=== PATIENT | female | born 1975 | race Hispanic/Latino ===

== ENCOUNTER 2018-12-04 07:26 | Outpatient (CLI) | payer BC ==
[2018-12-04] MEDS ORDERED: Iopamidol 370 76% 100 ML VIAL ONE (10:25)
--- NOTE | 2018-12-04 11:33 | CT ---
CT NECK WITH AND WITHOUT CONTRAST: Date: 12/04/18 INDICATION: History of thyroid malignancy. Lump. FINDINGS: There is absence of the thyroid gland status post therapy. No residual mass or the thyroid bed is dis cretely visualized. Salivary glands are grossly unremarkable. There are scattered borderline size lym ph nodes of the neck bilaterally. These are nonspecific in etiology. No mass of the aerodigestive tra ct. No obvious acute osseous abnormality. No mass of the imaged upper lung zone. IMPRESSION: 1. Status post thyroidectomy. 2. Nonspecific bilateral cervical chain lymph nodes. Correlate clinically. 3. More sensitive evaluation may be obtained with thyroid uptake nuclear medicine scan for continued evaluation as clinically necessary. POS: [facility]
== END 2018-12-04 07:27 | disposition home or self-care (01) ==
LOC: CT 07:26
PROVIDERS: ATTEND Physician Assistant Medical
DX: R22.1 Localized swelling, mass and lump, neck (principal); E89.0 Postprocedural hypothyroidism; Z85.850 Personal history of malignant neoplasm of thyroid
CPT/HCPCS: 70492

== ENCOUNTER 2018-12-23 13:54 | Outpatient (CLI) | payer BC ==
--- NOTE | 2018-12-23 16:08 | ULT ---
Soft tissue ultrasound of the right anterior lower neck INDICATION: palpable abnormality in the right neck FINDINGS: There is a 0.9 x 0.3 x 0.7 cm reniform appearing hypoechoic mass that is hyperemic. This le chandana overlies the lower right sternocleidomastoid muscle. This likely corresponds to an 8 x 5 mm nodular density overlying the right sternocleidal mastoid muscle on the comparison CT of the soft tis cecilio neck dated 12/04/2018. Patient had mildly prominent lymph nodes within the neck bilaterally. This is likely indicative of an additional smaller lymph node. IMPRESSION: Reniform hypoechoic, hyperemic mass is suspicious for an enlarged lymph node. Recommend c onsideration for surgical referral for surgical biopsy.
== END 2018-12-23 13:55 | disposition home or self-care (01) ==
LOC: ULT 13:54
PROVIDERS: ATTEND Internal Medicine Endocrinology, Diabetes & Metabolism
DX: C73 Malignant neoplasm of thyroid gland (principal); R22.1 Localized swelling, mass and lump, neck
CPT/HCPCS: 76999

== ENCOUNTER 2019-01-14 08:25 | Emergency (ER) | payer BC ==
[2019-01-14] MEDS ORDERED: Diazepam 10 MG/2 ML SYRINGE ONE (08:44)
[2019-01-14] MEDS ORDERED: Ibuprofen 800 MG TAB ONE (09:17)
== END 2019-01-14 09:51 | disposition home or self-care (01) ==
LOC: ERS 08:25
DX: G24.3 Spasmodic torticollis (principal); G43.909 Migraine, unspecified, not intractable, without status migrainosus; F41.9 Anxiety disorder, unspecified; Z79.899 Other long term (current) drug therapy
CPT/HCPCS: 96374; J3360

== ENCOUNTER 2019-01-25 10:40 | Outpatient (CLI) | payer BC ==
--- NOTE | 2019-01-27 15:15 | NM ---
WHOLE BODY RADIOIODINE SCAN: 01/27/19 HISTORY: Malignant neoplasm of thyroid gland. Patient had thyroidectomy in 2014 and no subsequent radioiodine ablation therapy. RADIOPHARMACEUTICAL: 4.5 millicuries Iodine 123 administered orally. COMPARISON: None. FINDINGS: There are foci of intense uptake in the neck. A star burst artifact is seen in the neck. There is physiologic activity in the GI and tracts. No other abnormal areas of tracer localization is seen. 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 POS: [facility]
== END 2019-01-25 10:41 | disposition home or self-care (01) ==
LOC: NM 10:40
PROVIDERS: ATTEND Internal Medicine Endocrinology, Diabetes & Metabolism
DX: C73 Malignant neoplasm of thyroid gland (principal); E03.9 Hypothyroidism, unspecified
CPT/HCPCS: 78018; A9517

== ENCOUNTER 2019-02-10 10:06 | Inpatient (IN) | payer BC ==
[~2019-02-10 10:06] MED LIST: Dexamethasone 20 MG/5 ML VIAL ONE; Glycopyrrolate 0.2 MG/ML 5 ML SYRINGE ONE; Lidocaine 1% PF 5 ML VIAL ONE; Ondansetron PF 4 MG/2 ML Vial ONE; PROPOFOL 200 MG/20 ML VIAL ONE; Rocuronium Bromide 10 MG/ML (10ML VIAL) ONE; ePHEDrine/0.9% NaCl/PF SYRINGE 50 mg/10 ml ONE
[2019-02-10] MEDS ORDERED: Lidocaine 1% w/Epinephrine 1:100K 20 ML VIAL ONE (12:10)
[2019-02-10] MEDS ORDERED: Bacitracin Zinc Ointment 30 gm TUBE ONE (12:10)
[2019-02-10] MEDS ORDERED: Fentanyl 250 MCG/5 ML VIAL ONE (12:16)
[2019-02-10] MEDS ORDERED: Midazolam HCl 2 mg/2 ml Vial ONE (12:24)
[2019-02-10] MEDS ORDERED: PROPOFOL 20 ML ONE (13:40)
[2019-02-10] MEDS ORDERED: SUGAMMADEX SODIUM 200 MG/2 ML VIAL ONE (13:49)
[2019-02-10] MEDS ORDERED: Fentanyl 100 MCG/2 ML VIAL ONE ×2 (14:18→15:19)
--- NOTE | 2019-02-10 14:43 | OP ---
DATE OF PROCEDURE: 02/10/2019 PREOPERATIVE DIAGNOSES: 1. History of thyroid cancer. 2. Right cervical lymphadenopathy. POSTOPERATIVE DIAGNOSES: 1. History of thyroid cancer. 2. Right cervical lymphadenopathy. PROCEDURE PERFORMED: Right selective neck dissection level 2 through 4. ESTIMATED BLOOD LOSS: 20 mL. COMPLICATIONS: None. ANESTHESIA: GETA. BRIEF HISTORY: This is a 43-year-old female with history of a small thyroid cancer, underwent thyroidectomy with no postoperative radioactive iodine treatment. There was concern for recurrence of metastatic disease in the right neck by a recent thyroid uptake scan. We discussed with security tech and also with radiologist about the excisional biopsy of this versus a possible neck dissection. DESCRIPTION OF PROCEDURE: The patient was taken to the operating room, placed supine on the table. General endotracheal anesthesia was obtained by the Anesthesia Staff. A shoulder roll was placed. Following this, a right neck was prepped and draped in standard surgical fashion. An incision was made in the submental crease extending laterally onto the neck. The patient had extremely short neck. Dissection was carried down to the digastric muscle. The facial vein was suture ligated. The sternocleidomastoid muscle was then gently unwrapped from the fascia. There were multiple lymph nodes from level 2 and 3, a large lymph node in level 2 which was prominent on the CT scan was sent for frozen section analysis that showed no evidence of metastatic disease. However, due to the numerous lymph nodes that were present, the more comprehensive neck dissection was performed. The sternocleidomastoid fascia was unwrapped and anteriorly displaced. The spinal accessory nerve on this right side was identified. It was noted to be coursing lateral to the internal jugular vein. Dissection at the inferior limit, the omohyoid was retracted inferiorly and dissection was carried into level 4 down to the deep neck musculature, where this lymphatic pedicle was suture ligated. The level 2 through 4 specimen was then dissected from lateral to medial of the deep neck musculature fascia. Following this, the internal jugular vein was unwrapped and its branching vessels were suture ligated. The lymphatic pedicle was then freed from the attachments to the carotid artery and the previous right thyroid surgical bed and was marked and sent for pathological analysis. Following this, the wound was irrigated. A small drain was placed, and the wound was then closed using Monocryl and Vicryl stitches for the platysma layer and subcuticular layer. Dermabond was placed on the skin. The patient tolerated the procedure well. Job ID: [id number]
[2019-02-10] MEDS ORDERED: Ondansetron PF 4 MG/2 ML Vial SLOW IVP PRN ×2 (16:59→18:08)
[2019-02-10 17:48] VITALS: BMI 50.8
[2019-02-10] MEDS ORDERED: HYDROcodone/Acetaminophen 5/325 mg Tablet PO PRN ×2 (18:07→19:32)
[2019-02-10] MEDS: Sodium Chloride 0.45% 1,000 ML IV SCH ×2 (18:22→18:24)
[2019-02-10] MEDS: Morphine 2 MG/ML SYRINGE SLOW IVP PRN (18:24)
[2019-02-10] MEDS: CEFAZOLIN 1 GM in Sodium Chloride 0.9% 100 ML IVPB SCH (20:19)
[2019-02-11] MEDS: Sodium Chloride 0.45% 1,000 ML IV SCH ×3 (03:04→11:35)
[2019-02-11] MEDS: CEFAZOLIN 1 GM in Sodium Chloride 0.9% 100 ML IVPB SCH ×2 (03:04→11:35)
[2019-02-11] MEDS: Morphine 2 MG/ML SYRINGE SLOW IVP PRN (06:19)
[2019-02-11 08:26] VITALS: BP 127/85; TEMP 97.8
--- NOTE | 2019-02-13 06:54 | PQF ---
MAURO SABILLON STEVEN MD [id number] SURG [id number] CLINICAL DOCUMENTATION CLARIFICATION FORM: POST DISCHARGE Addendum to original discharge summary date: ____ Late entry note date: __ DATE: 02/13/2019 ATTN: PETER EVANGELISTA MD Please exercise your independent, professional judgment in responding to the clarification form. Clinical indicators are provided on the bottom of this form for your review Please check appropriate box(s): BMI > 40 with associated diagnosis of: (check one) [ ] Morbid (Severe) Obesity [ ] Due to excess calories [ ] with Alveolar Hypoventilation (Pickwickian syndrome) [ ] Overweight [ ] Obesity [ ] Other diagnosis [ ] Unable to determine In addition, please specify: Present on Admission (POA): [ ] Yes [ ] No [ ] Unable to Determine For continuity of documentation, please document condition throughout progress notes and discharge summary. Thank You. BMI < 18.5Under weight = 18.5 - 24.9Healthy = 25.0 - 29.9Slightly Overweight = 30.0 - 34.9Obese/Class I = 35.0 - 39.9Severely Obese/Class II = 40.0 and OverMorbidly Obese/Class III CLINICAL INDICATORS - SIGNS / SYMPTOMS / LABS - BMI of 50.8- FNS assessment, 02/10 - Height: 1.73M - Current Weight: 147.418kg RISK FACTORS - Hx of thyroid cancer- OP report, 02/10, PETER EVANGELISTA MD - Right selective neck dissection level 2 though 4-OP report, 02/10, PETER EVANGELISTA MD TREATMENTS: -Weight measurement -Calcium citrate.PO-MAR (This form is maintained as a part of the permanent medical record) 2014 [employer]. All Rights Reserved Jean-Paul Campos [not provided] [not provided] BRYON
== END 2019-02-11 11:05 | disposition home or self-care (01) | DRG 581 ==
LOC: SDC 10:06 → SURG B 16:40
PROVIDERS: ADMIT Otolaryngology Plastic Surgery within the Head & Neck; ATTEND Otolaryngology Plastic Surgery within the Head & Neck
PROC: 07T10ZZ Resection of Right Neck Lymphatic, Open Approach (ICD-10-PCS; principal; 2019-02-10)
DX: R22.1 Localized swelling, mass and lump, neck (principal); C73 Malignant neoplasm of thyroid gland; J34.3 Hypertrophy of nasal turbinates; R49.0 Dysphonia; J01.90 Acute sinusitis, unspecified; Z88.8 Allergy status to other drugs, medicaments and biological substances; Z98.51 Tubal ligation status
CPT/HCPCS: 36415; 85014; 88305; 88309; 88331; J0690; J1100; J2001; J2250; J2270; J2405; J2704; J3010; J3490

== ENCOUNTER 2019-06-08 16:43 | Emergency (ER) | payer BC ==
[2019-06-08] MEDS ORDERED: Ondansetron PF 4 MG/2 ML Vial ONE (17:52)
[2019-06-08 17:59] LABS: #Eosinphils 0.2 thou/uL (0.0-0.7); #Lymphocytes 2.4 thou/uL (1.20-3.40); #Monocytes 0.4 thou/uL (0.11-0.59); #Neutrophils 6.5 thou/uL (1.40-6.50); %Basophils 0.2 % (0.0-1.0); %Eosinophils 1.9 % (0.0-10.0); %Lymphocytes 25.7 % (21.0-51.0); %Monocytes 4.4 % (0.0-10.0); %Neutrophils 67.9 % (42.0-75.0); Hemoglobin 11.8 g/dL (12.0-16.0); Mean Corpuscular HGB CONC 34.2 g/dL (32.0-36.0); Mean Corpuscular Hemoglobin 27.1 pg (27.0-31.0); Mean Corpuscular Volume 79.3 fL (78.0-98.0); Platelet Count 347 thou/uL (130-400); RBC Distribution Width 13.5 % (11.5-14.5); Red Blood Cell (RBC) Count 4.33 mill/uL (4.20-5.40); White Blood Cell (WBC) Count 9.5 thou/uL (4.8-10.8)
[2019-06-08 18:04] LABS: BHCG - Serum Negative (NEGATIVE); Pregs Control Background? CLEAR/WHITE (CLR/WHITE); Pregs Control Bar Appear? YES (CONTROL BAR)
--- NOTE | 2019-06-08 18:11 | ULT ---
GALLBLADDER ULTRASOUND: 06/08/19 HISTORY: Right upper quadrant pain. Real time imaging of the right upper quadrant shows a somewhat contracted gallbladder. No stones are identified. Common duct is 5 mm. The visualized liver parenchyma shows no focal findings. The right k idney is normal in size and not obstructed. The pancreas is obscured. IMPRESSION: Slightly contracted gallbladder but no gallstones identified. This could be related to a patient not fasting. If the patient has been fasting, then consideration for hepatobiliary scan would be dylan lopez POS: [facility]
[2019-06-08 18:25] LABS: ALT (SGPT) 14 U/L (8-55); AST (SGOT) 11 U/L (5-34); Albumin 4.2 g/dL (3.5-5.0); Alkaline Phosphatase 88 U/L (40-110); Anion Gap 13 mmol/L (10-20); BUN (Urea Nitrogen) 10 mg/dL (7.0-18.7); Bilirubin, Total 0.2 mg/dL (0.2-1.2); Calc. Creatinine Clearance 0 mL/min (70-130); Calcium 8.6 mg/dL (7.8-10.44); Carbon Dioxide 26 mmol/L (22-29); Chloride 103 mmol/L (98-107); Estimated GFR-MDRD Greater than 90; Globulin 3.8 g/dL (2.4-3.5); Glucose 107 mg/dL (70-105); Lipase 23 U/L (8-78); Potassium 3.7 mmol/L (3.5-5.1); Sodium 138 mmol/L (136-145)
[2019-06-08 19:09] LABS: Bilirubin Negative (Negative); Blood, Urine 3+ (Negative); Clarity Clear (Clear); Glucose, Urine (Dipstick) Normal (Negative); Leukocyte Negative Leu/uL (Negative); Nitrite Negative (Negative); Protein, Urine (Dipstick) 10 mg/dL (Neg-Trace); RBC/HPF Greater than 50 HPF (0-3); Squamous Epithelial 0-3 HPF (0-3); Urobilinogen Normal mg/dL (Less than 2)
[2019-06-08 19:19] LABS: Bacteria/HPF 1+ HPF (None Seen)
== END 2019-06-08 19:50 | disposition home or self-care (01) ==
LOC: ERS 16:43
DX: R10.11 Right upper quadrant pain (principal); R11.0 Nausea; G43.909 Migraine, unspecified, not intractable, without status migrainosus; F41.9 Anxiety disorder, unspecified; Z79.01 Long term (current) use of anticoagulants; Z79.899 Other long term (current) drug therapy
CPT/HCPCS: 76705; 80053; 81003; 81015; 83690; 84703; 85025; 96360; 96361; 96374; J2405

== ENCOUNTER 2021-02-02 13:54 | Emergency (ER) | payer BC ==
[~2021-02-02 13:54] MED LIST changes: -Dexamethasone 20 MG/5 ML VIAL ONE; -Glycopyrrolate 0.2 MG/ML 5 ML SYRINGE ONE; +Iopamidol-370 76% 500 ML 1 ML ONE; -Lidocaine 1% PF 5 ML VIAL ONE; -Ondansetron PF 4 MG/2 ML Vial ONE; -PROPOFOL 200 MG/20 ML VIAL ONE; -Rocuronium Bromide 10 MG/ML (10ML VIAL) ONE; -ePHEDrine/0.9% NaCl/PF SYRINGE 50 mg/10 ml ONE
[2021-02-02 14:54] LABS: #Basophils 0.1 thou/uL (0.0-0.2); #Eosinphils 0.1 thou/uL (0.0-0.7); #Lymphocytes 2.2 thou/uL (1.20-3.40); #Monocytes 0.4 thou/uL (0.11-0.59); #Neutrophils 7.5 thou/uL (1.40-6.50); %Basophils 0.8 % (0.0-1.0); %Eosinophils 1.3 % (0.0-10.0); %Lymphocytes 21.3 % (21.0-51.0); %Monocytes 3.9 % (0.0-10.0); %Neutrophils 72.7 % (42.0-75.0); Hemoglobin 12.8 g/dL (12.0-16.0); Mean Corpuscular HGB CONC 34.2 g/dL (32.0-36.0); Mean Corpuscular Hemoglobin 28.8 pg (27.0-31.0); Mean Corpuscular Volume 84.2 fL (78.0-98.0); Mean Platelet Volume 7.6 fL (7.4-10.4); Platelet Count 328 thou/uL (130-400); Red Blood Cell (RBC) Count 4.44 mill/uL (4.20-5.40); White Blood Cell (WBC) Count 10.3 thou/uL (4.8-10.8)
[2021-02-02 15:03] LABS: ALT (SGPT) 14 U/L (8-55); AST (SGOT) 13 U/L (5-34); Albumin 4.1 g/dL (3.5-5.0); Alkaline Phosphatase 86 U/L (40-110); Anion Gap 13 mmol/L (10-20); BUN (Urea Nitrogen) 14 mg/dL (7.0-18.7); Bilirubin, Total 0.2 mg/dL (0.2-1.2); Calc. Creatinine Clearance 0 mL/min (70-130); Calcium 8.6 mg/dL (7.8-10.44); Carbon Dioxide 27 mmol/L (22-29); Chloride 103 mmol/L (98-107); Globulin 3.4 g/dL (2.4-3.5); Glucose 95 mg/dL (70-105); Potassium 4.1 mmol/L (3.5-5.1); Protein, Total 7.5 g/dL (6.0-8.3); Sodium 139 mmol/L (136-145)
[2021-02-02] MEDS ORDERED: Acetaminophen 500 MG TAB ONE (15:34)
[2021-02-02] MEDS ORDERED: Metoclopramide HCl 10 MG/2 ML VIAL ONE (15:34)
[2021-02-02] MEDS ORDERED: diphenhydrAMINE 50 MG/ML VIAL ONE (15:34)
[2021-02-02] MEDS ORDERED: Proparacaine 0.5% Opth 15 ML BOT ONE (16:01)
[2021-02-02 17:50] LABS: Bilirubin Negative (Negative); Blood, Urine Negative (Negative); Clarity Clear (Clear); Glucose, Urine (Dipstick) Normal (Negative); Ketone, Urine Negative (Negative); Leukocyte Negative Leu/uL (Negative); Nitrite Negative (Negative); Protein, Urine (Dipstick) Negative (Neg-Trace); Specific Gravity, Urine 1.021 (1.002-1.036); Urobilinogen Normal mg/dL (Less than 2); pH, Urine 6.5 (5.0-9.0)
[2021-02-02 18:43] LABS: Pregnancy Test - Urine (BHCG) Negative (Negative); Pregu Control Background? CLEAR/WHITE (CLR/WHITE); Pregu Control Bar Appear? YES (CONTROL BAR)
[2021-02-02 18:48] LABS: BHCG - Serum Negative (NEGATIVE); Pregs Control Background? CLEAR/WHITE (CLR/WHITE); Pregs Control Bar Appear? YES (CONTROL BAR)
== END 2021-02-02 19:26 | disposition home or self-care (01) ==
LOC: ERS 13:54
DX: R51.9 Headache, unspecified (principal); Z87.891 Personal history of nicotine dependence; Z85.850 Personal history of malignant neoplasm of thyroid; Z79.01 Long term (current) use of anticoagulants; Z79.899 Other long term (current) drug therapy
CPT/HCPCS: 36415; 70450; 70496; 71045; 80053; 81003; 81025; 84484; 84703; 85025; 93005; 96365; 96375; J1200; J2765; Q9967